=== PATIENT | male | born 1980 | race Caucasian/White ===

== ENCOUNTER 2023-11-29 10:05 | Outpatient (CLI) | payer BC, SELFPAY | END 2023-11-29 10:06 | disposition home or self-care (01) | PROVIDERS: PCP Family Medicine; Visit Provider Family Medicine | DX: R53.83 Other fatigue (principal); I10 Essential (primary) hypertension; M10.9 Gout, unspecified; F41.8 Other specified anxiety disorders; R68.89 Other general symptoms and signs; M35.3 Polymyalgia rheumatica | CPT/HCPCS: 80053; 80061; 82306; 82553; 83735; 84270; 84402; 84403; 84443; 84550; 86618; G0103 ==

== ENCOUNTER 2024-01-05 07:51 | Outpatient (CLI) | payer BC, SELFPAY | END 2024-01-05 07:52 | disposition home or self-care (01) | PROVIDERS: PCP Family Medicine; Visit Provider Family Medicine | DX: I10 Essential (primary) hypertension (principal); I25.10 Atherosclerotic heart disease of native coronary artery without angina pectoris | CPT/HCPCS: 93306 ==

== ENCOUNTER 2024-01-31 08:48 | Outpatient (CLI) | payer BC, SELFPAY ==
--- NOTE | 2024-01-31 10:42 | W.ANESCHARGE ---
Anesthesia Charges Start Date/Time Anesthesia Start Date: 01/31/24 Anesthesia Start Time: 09:52 Stop Date/Time Anesthesia Stop Date: 01/31/24 Anesthesia Stop Time: 10:36
== END 2024-01-31 08:49 | disposition home or self-care (01) ==
LOC: OP CLINIC 08:48
PROVIDERS: PCP Family Medicine; Visit Provider Surgery
DX: Z12.11 Encounter for screening for malignant neoplasm of colon (principal); K57.30 Diverticulosis of large intestine without perforation or abscess without bleeding; K21.9 Gastro-esophageal reflux disease without esophagitis; K44.9 Diaphragmatic hernia without obstruction or gangrene; K31.7 Polyp of stomach and duodenum
CPT/HCPCS: 00813; 43239; 45378; 88305; J2704; J3490

== ENCOUNTER 2024-09-27 07:53 | Outpatient (CLI) | payer BC, SELFPAY ==
--- NOTE | 2024-09-27 08:00 | CRLHL7_ITS ---
For Patients: As a result of the Century Cures Act, medical imaging exams and procedure reports are released immediately into your electronic medical record. You may view this report before your referring provider. If you have questions, please contact your health care provider. INDICATION: unspecified abdominal pain COMPARISON: none TECHNIQUE: Real time cabral scale imaging and color Doppler analysis was performed of the right upper quadrant. FINDINGS: Liver measures 21.5 cm. Liver echotexture is diffusely increased and heterogeneous. No intrahepatic mass. There is a normal appearance of the hepatic IVC and proximal abdominal aorta. There is no evidence of ascites. The gallbladder is of normal size and there is a non dependent echogenic focus associated with the gallbladder wall which measures 7 x 6 x 6 millimeters. The gallbladder wall measures 1.9 mm in thickness. The common bile duct is of normal size and measures 3.0 mm in diameter at the level of the roxanna hepatis. The pancreas is not well visualized due to bowel gas. There is no evidence of a stone or hydronephrosis within the right kidney. The right kidney measures 12.9 cm in length. IMPRESSION: Hepatomegaly with diffuse hepatic steatosis, severe. Polyp measures 7 millimeters. No biliary obstruction. Dictated by Jed Orellana MD @ 09/27/2024 5:37:38 PM (Electronically Signed)
== END 2024-09-27 07:54 | disposition home or self-care (01) ==
LOC: US 07:54
PROVIDERS: PCP Family Medicine; Visit Provider Family Medicine
DX: R10.9 Unspecified abdominal pain (principal); R16.0 Hepatomegaly, not elsewhere classified; K76.0 Fatty (change of) liver, not elsewhere classified; K82.4 Cholesterolosis of gallbladder
CPT/HCPCS: 76705